=== PATIENT | female | born 1990 | race African-American/Black ===

== ENCOUNTER 2016-11-02 22:07 | Emergency (ER) | payer MEDICAID ==
[~2016-11-02] VITALS: Ht 170.2 cm; Wt 89.5 kg
[~2016-11-02 22:07] MED LIST: FERR1TAB45 PO
[2016-11-02] MEDS ORDERED: PREN-64 PO (22:13)
[2016-11-02 23:17] VITALS: BP 139/82
[2016-11-02] MEDS ORDERED: CLINDAMYCIN PHOS 150 MG/ML 4 ML VIAL IM ONE (23:30)
[2016-11-02] MEDS ORDERED: HYDROCODONE/ACETAMINOPHEN 10-325 MG TABLET PO ONE (23:30)
== END 2016-11-03 00:03 | disposition home or self-care (01) ==
LOC: EMS 22:10
DX: K02.9 Dental caries, unspecified (principal); Z88.0 Allergy status to penicillin; Z88.5 Allergy status to narcotic agent
CPT/HCPCS: 96372; 99283; S0077